=== PATIENT | female | born 1990 | race Caucasian/White ===

== ENCOUNTER 2017-03-27 16:50 | Emergency (ER) | payer SELFPAY ==
[~2017-03-27] VITALS: Ht 160 cm; Wt 77.0 kg
[2017-03-27 17:15] VITALS: BP 129/86
== END 2017-03-27 23:00 | disposition left against medical advice (07) ==
LOC: ER 22:15
DX: R10.9 Unspecified abdominal pain (principal); Z53.21 Procedure and treatment not carried out due to patient leaving prior to being seen by health care provider